=== PATIENT | female | born 1955 | race Caucasian/White ===

== ENCOUNTER 2024-11-19 20:22 | Outpatient (CLI) | payer MEDICARE, SELFPAY | END 2024-11-19 20:23 | disposition home or self-care (01) | LOC: AMB 11-22 11:35 | PROVIDERS: Visit Provider Emergency Medicine | DX: R06.02 Shortness of breath (principal) | CPT/HCPCS: A0425; A0427 ==

== ENCOUNTER 2024-11-23 15:03 | Outpatient (CLI) | payer MEDICARE, SELFPAY | END 2024-11-23 15:04 | disposition home or self-care (01) | LOC: AMB 11-29 16:04 | PROVIDERS: Visit Provider Student in an Organized Health Care Education/Training Program | DX: R06.09 Other forms of dyspnea (principal); Z99.81 Dependence on supplemental oxygen | CPT/HCPCS: A0425; A0428 ==